=== PATIENT | male | born 1985 | race Two or more races ===

== ENCOUNTER 2019-03-27 14:55 | Outpatient (CLI) | payer OTHER ==
--- NOTE | 2019-03-28 14:33 | XRAY Report ---
Reason: SHOULDER JOINT PAIN,RIGHT Procedure Date: 03/27/2019 Accession Number: [id number] / [id number] Procedure: WCP - Shoulder 2 View RT CPT Code: FULL RESULT: EXAM: RIGHT SHOULDER RADIOGRAPHY EXAM DATE: 03/27/2019 03:03 PM. CLINICAL HISTORY: Shoulder joint pain, right. No known injury. COMPARISON: None. TECHNIQUE: 2 views. FINDINGS: Bones: Normal. No fracture or bone lesion. Joints: The glenohumeral and acromioclavicular joints are normal. Soft tissues: The visualized hemithorax is unremarkable. No soft tissue swelling. IMPRESSION: Normal shoulder radiography. [facility]
== END 2019-03-27 14:56 | disposition home or self-care (01) ==
LOC: DI.WCP 14:55
PROVIDERS: ATTEND Family Medicine
DX: M25.511 Pain in right shoulder (principal)

== ENCOUNTER 2023-07-08 16:12 | Outpatient (CLI) | payer OTHER | END 2023-07-08 16:13 | disposition short-term general hospital (02) | LOC: EMS 16:12 | DX: S49.91XA Unspecified injury of right shoulder and upper arm, initial encounter (principal); S59.912A Unspecified injury of left forearm, initial encounter; S59.902A Unspecified injury of left elbow, initial encounter; W13.2XXA Fall from, out of or through roof, initial encounter; Y92.008 Other place in unspecified non-institutional (private) residence as the place of occurrence of the external cause | CPT/HCPCS: A0425; A0427 ==